=== PATIENT | female | born 1990 | race Caucasian/White ===

== ENCOUNTER 2019-06-05 12:30 | Inpatient (IN) | payer BC ==
[~2019-06-05] VITALS: Ht 175.3 cm; Wt 94.5 kg
[2019-06-15] VITALS (45 sets, daily range): BP systolic 123–193; BP diastolic 66–99; PULSE 71–127; TEMP 97.8–98.8
[2019-06-15] MEDS ORDERED: PRENATAL (07:34)
[2019-06-15 08:45] LABS: BASO % 0.3 % (0.0-2.0); EOS # 0.1 (0.0-0.7); EOS % 0.7 % (0-4.0); GRAN # 6.7 (1.4-6.5); GRAN % 67.2 % (42.2-75.2); HEMATOCRIT 39.3 % (37.0-47.0); HEMOGLOBIN 13.4 g/dl (12.5-16.0); LYMPH # 2.3 (1.2-3.4); LYMPH % 23.3 % (20.0-51.0); MEAN CELL VOLUME 92 fl (80.0-100.0); MEAN CORPUSCULAR HEMOGLOBIN 31 pg (27.0-31.0); MEAN CORPUSCULAR HGB CONC 34 g/dl (33.0-37.0); MEAN PLATELET VOLUME 10.9 fl (7.4-10.4); MONO # 0.8 (0.1-0.6); MONO % 8.1 % (1.7-9.3); PLATELET COUNT 197 K/mm3 (130-400); RED BLOOD COUNT 4.28 M/mm3 (4.10-5.30); REDCELL DISTRIBUTION WIDTH-CV 12.8 % (11.5-14.5)
[2019-06-16 04:30] VITALS: BP 143/90; PULSE 778; TEMP 98.3
[2019-06-16 06:40] VITALS: BP 134/81; PULSE 89; TEMP 97.9
[2019-06-16 10:43] VITALS: BP 131/85; PULSE 83; TEMP 98
[2019-06-16 16:14] VITALS: BP 119/74; PULSE 79; TEMP 98.1
[2019-06-16 20:45] VITALS: BP 128/76; PULSE 79; TEMP 98.3
[2019-06-17 08:45] VITALS: BP 134/77; PULSE 78; TEMP 98
[2019-06-17] MEDS ORDERED: IBU600 MG PO (11:55)
[2019-06-17] MEDS ORDERED: PERCOCET 325 MG1 TA2 PO (11:56)
== END 2019-06-17 12:30 | disposition home or self-care (01) | DRG 807 ==
LOC: LDR 06-15 07:08 → OB 06-15 19:30
PROVIDERS: ADMIT Obstetrics & Gynecology
PROC: 10E0XZZ Delivery of Products of Conception, External Approach (ICD-10-PCS; principal; 2019-06-15)
PROC: 0KQM0ZZ Repair Perineum Muscle, Open Approach (ICD-10-PCS; 2019-06-15)
PROC: 10907ZC Drainage of Amniotic Fluid, Therapeutic from Products of Conception, Via Natural or Artificial Opening (ICD-10-PCS; 2019-06-15)
PROC: 0UQMXZZ Repair Vulva, External Approach (ICD-10-PCS; 2019-06-15)
PROC: 3E033VJ Introduction of Other Hormone into Peripheral Vein, Percutaneous Approach (ICD-10-PCS; 2019-06-15)
DX: O70.1 Second degree perineal laceration during delivery (principal); Z37.0 Single live birth; O99.824 Streptococcus B carrier state complicating childbirth; O71.82 Other specified trauma to perineum and vulva; Z3A.40 40 weeks gestation of pregnancy
CPT/HCPCS: J2590; J2795; J7120